=== PATIENT | male | born 2000 | race Caucasian/White ===

== ENCOUNTER 2023-03-27 20:25 | Emergency (ER) | payer MEDICAID, OTHER ==
[2023-03-27 20:37] VITALS: BP 104/73; O2SAT 100
--- NOTE | 2023-03-27 21:01 | XRAY Report ---
PROCEDURE: Knee 3 View RT INDICATIONS: Fall/injury to R inner knee TECHNIQUE: 3 views of the knee(s) were acquired. COMPARISON: None. FINDINGS: Bones: No fractures or dislocations. No suspicious bony lesions. Soft tissues: No knee joint effusion. No suspicious soft tissue calcifications or masses. IMPRESSION: No acute bony abnormality. Reviewed by: Dannie Eden MD on 03/27/2023 8:59 PM PST Approved by: Dannie Eden MD on 03/27/2023 8:59 PM PST Station ID: [id number]
--- NOTE | 2023-03-27 21:01 | ED Physician Documentation ---
PD HPI LOWER EXT INJURY - Stated complaint Stated Complaint: RT KNEE INJ - Chief complaint Chief Complaint: Trauma Ext - History obtained from History obtained from: Patient - Additional information Additional information: 22-year-old male presents for right knee pain since earlier today. He was climbing when he slipped, landing on his right knee. He has been able to bear weight on the affected extremity, but he has noticed bruising and swelling on the inside of his right knee and is requesting x-ray evaluation. Review of Systems Constitutional: denies: Fever, Chills Cardiac: denies: Chest pain / pressure, Palpitations Respiratory: denies: Dyspnea, Cough GI: denies: Abdominal Pain, Nausea, Vomiting Musculoskeletal: reports: Joint pain, Joint swelling. denies: Neck pain, Back pain, Extremity pain, Extremity swelling PD PAST MEDICAL HISTORY - Past Medical History Past Medical History: Yes Cardiovascular: Valve disorder, Other Psych: Other Other Past Medical History: Tricuspic valve deformity; Smokes marijuana daily - Past Surgical History Past Surgical History: Yes General: Appendectomy Cardiovascular: Other - Present Medications Home Medications: Ambulatory Orders Medication Instructions Recorded Confirmed No Known Home Medications 03/27/23 03/27/23 - Allergies Allergies/Adverse Reactions: Allergies Allergy/AdvReac Type Severity Reaction Status Date / Time No Known Drug Allergies Allergy Verified 03/27/23 20:37 - Social History Does the pt smoke?: No Smoking Status: Never smoker Does the pt drink ETOH?: Yes ETOH Use: Liquor Does the pt have substance abuse?: No - Immunizations Immunizations are current?: Yes - POLST Patient has POLST: No PD ED PE NORMAL - Vitals Vital signs reviewed: Yes - General General: Alert and oriented X 3, No acute distress, Well developed/nourished - Cardiac Cardiac: RRR - Respiratory Respiratory: No respiratory distress - Derm Derm: Normal color, Warm and dry, Other (minimal bruising medial R knee) - Extremities Extremities: No deformity, Normal ROM s pain - Neuro Neuro: Alert and oriented X 3, 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 He is able to bear weight on it and there is no obvious deformity. X-ray of the knee reveals no acute bony abnormality. Patient was placed in Bryan wrap for comfort, he was instructed to apply ice as needed for pain and swelling. He was also counseled to take Tylenol and Motrin as needed for pain. Departure - Departure Disposition: 01 Home, Self Care Clinical Impression: Knee contusion Qualifiers: Encounter type: initial encounter Laterality: right Qualified Code(s): S80.01XA - Contusion of right knee, initial encounter Instructions: ED Contusion Lower Ext Forms: PCP List Discharge Date/Time: 03/27/23 21:27
== END 2023-03-27 21:27 | disposition home or self-care (01) ==
LOC: ED 20:25
DX: S80.01XA Contusion of right knee, initial encounter (principal); W14.XXXA Fall from tree, initial encounter; Y93.39 Activity, other involving climbing, rappelling and jumping off; Y92.89 Other specified places as the place of occurrence of the external cause
CPT/HCPCS: 99283

== ENCOUNTER 2023-05-04 07:56 | Outpatient (CLI) | payer MEDICAID ==
--- NOTE | 2023-05-04 20:29 | MRI Report ---
PROCEDURE: KNEE WO - RT INDICATIONS: RIGHT KNEE PAIN TECHNIQUE: Noncontrast sagittal PD fast spin echo and T2 fast spin echo with fat saturation, sagittal 3-D spoile d GE with fat saturation; coronal T1 spin echo and PD fast spin echo with fat saturation, and axial P D fast spin echo with fat saturation through the knee. COMPARISON: Right knee radiographs 04/26/2023 FINDINGS: Image quality: Images are mildly degraded by patient motion on multiple pulse sequences despite repea t sequences being acquired. Diagnostic information is obtained. Anterior cruciate ligament: Mild increased signal is seen within the anterior cruciate ligament and the fibers appear attenuated, possibly related to a low-grade sprain or partial tear. The majority of the anterior cruciate ligament fibers are intact. Posterior cruciate ligament: Posterior cruciate ligament appears to be somewhat taut as positioned o n this exam, but intact. Medial collateral ligament: Edema seen surrounding the proximal medial collateral ligament, consiste nt with a low-grade sprain. Lateral collateral ligament: Intact. Medial meniscus: Mild focal contour irregularity and signal abnormality is seen in the body of the m edial meniscus that may be related to patient motion versus a small horizontal oblique tear. Lateral meniscus: Intact. Medial and lateral tendons: The semimembranosus tendon insertions appear intact. Visualized portion s of the pes anserinus tendons appear normal. The popliteus tendon appears intact. Iliotibial band appears normal. Anterior structures: The patellar tendon and the distal quadriceps tendon appear intact. No patellar subluxation. No femoral trochlear dysplasia or ventral trochlear prominence. No edema in the infra patellar fat pad. Bones: Osseous edema is seen throughout the far posterior portion of the lateral femoral condyle and lateral femoral metaphysis. There is mild edema at the far posterior portion of the medial femoral c ondyle. Moderate osseous edema is also seen within the lateral tibial plateau posteriorly. No discret e fracture line is seen. Medial femorotibial cartilage: Intact. Lateral femorotibial cartilage: Intact. Patellofemoral cartilage: Intact. Soft tissues: There is a small joint effusion. There is no medial popliteal cyst. The musculature s urrounding the knee is normal in bulk. IMPRESSION: 1.Moderate osseous contusions at the posterior aspect of the lateral femoral condyle and lateral tibi al plateau and to a lesser extent the medial femoral condyle. No focal fracture line is seen. 2.Anterior cruciate ligament appears mildly attenuated with increased intrasubstance signal, possibly related to a low-grade sprain or partial tear although the majority of the ligament fibers remain in continuity. 3.Grade 1 sprain of the proximal medial collateral ligament. 4.Questionable subtle focal horizontal oblique tear of the body of the medial meniscus, versus artifa ct related to motion. 5.Small joint effusion. Reviewed by: Ellis Carr MD on 05/04/2023 8:28 PM PST Approved by: Ellis Carr MD on 05/04/2023 8:28 PM PST Station ID: [id number]
== END 2023-05-04 07:57 | disposition home or self-care (01) ==
LOC: DI 07:56
PROVIDERS: ATTEND Physician Assistant Surgical
DX: S70.12XA Contusion of left thigh, initial encounter (principal); S80.12XA Contusion of left lower leg, initial encounter; S83.412A Sprain of medial collateral ligament of left knee, initial encounter; M25.462 Effusion, left knee